=== PATIENT | male | born 1935 | race Caucasian/White ===

== ENCOUNTER 2025-02-03 22:13 | Inpatient (IN) | payer MEDICARE, BC, SELFPAY ==
[2025-02-03] VITALS (12 sets, daily range): BP systolic 126–158; BP diastolic 75–104; PULSE 115–116; BMI 21.7; BMI 21.1
[2025-02-03 18:05] LABS: Hematocrit 27.3 % (39.0-52.0); Hemoglobin 8.6 g/dL (13.0-18.0); Mean Corp Hgb Conc. 31.5 g/dL (33.0-37.0); Mean Corpuscular Volume 87.8 fL (80.0-94.0); Nucleated Red Blood Cells % 0 % (-); Platelet Count 226 10^3/uL (130-400); Red Cell Dist. Width 17.2 % (11.5-14.5)
[2025-02-03 18:15] LABS: ALT (SGPT) 77 U/L (0-50); AST (SGOT) 60 U/L (17-59); Albumin 4.7 g/dl (3.5-5.0); Alkaline Phosphatase 205 U/L (38-126); Blood Urea Nitrogen 35 mg/dl (9-20); Calcium 9.7 mg/dl (8.4-10.2); Carbon Dioxide 22 mmol/L (22-30); Chloride 106 mmol/L (98-107); Estimated Creatinine Clearance 42 ml/min; Glucose 236 mg/dl (70-99); Potassium 4.7 mmol/L (3.5-5.1); Sodium 140 mmol/L (135-145); Total Protein 7.7 g/dl (6.3-8.2); eGFR 57.81
[2025-02-03 18:16] LABS: INR 1.69; PT 20.4 Sec (11.4-14.6)
[2025-02-03 18:17] LABS: APTT 37.1 Sec (23.4-35.0)
[2025-02-03 19:06] LABS: Troponin I 0.368 ng/ml
--- NOTE | 2025-02-03 19:28 | ED.GENMED ---
History of Present Illness
General
Chief Complaint: Rectal Bleeding
Source: patient
Exam Limitations: none
Time Seen by Provider: 02/03/25 18:07
History of Present Illness
History of Present Illness:
Somewhat lack of history but apparently the physical therapist checked on him after missing his last session. Patient complaining of weakness some intermittent chest pressure some dark stools. Initially denied hitting his head after a fall 2 days
ago but then after pointing out the spot on his face he noted he may have hit his head. He lives alone but his son lives in the near facility. His major complaint is intermittent chest pain. Patient is on Xarelto. States he was at [facility]
Hospital in early December. Was admitted there with dark stools. His regular physician is from [facility]
Past History
Past History
ED Past Medical History: CAD
ED Past Surgical History: Bowel resection and Urological
Review of Systems
Review of Systems
All Other Systems: Not applicable
Constitutional: Denies fever
Respiratory: Reports no symptoms
ABD/GI: Reports no symptoms
Phy Exam
Physical Exam
Physical Exam:
GENERAL: Alert. Nontoxic-appearing
EYE: Orbits normal. Abrasion to the right face at the nasolabial fold
NECK: Supple, nontender
ENT: Pharynx without erythema
CARDIAC: Tachycardic and regular no murmur
LUNGS: Clear breath sounds,normal
ABDOMEN: Soft, without focal tenderness or distention. Stool is slightly dark brown but test negative
NEUROLOGICAL: Alert and oriented , grossly non-focal
SKIN: Warm and dry, no rash or lesion, no discoloration, skin intact.
MUSCULOSKELETAL: Mild edema. Good color
PSYCH: Normal and appropriate interaction.
Course
Orders/Labs/Results
Orders:
Orders
02/03/25 Breakfast
NPO
Allow oral meds: Yes
Allow clear liquids: Sips of Clears
02/03/25 17:48
EKG [Electrocardiogram (*1)] Urgent
Reason for Study: Tachycardia
EKG- Treatment ONCE
02/03/25 17:49
Type+Screen Urgent
Complete Blood Count/With Diff Urgent
Comprehensive Metabolic Panel Urgent
Glycohemoglobin (HgbA1c) Urgent
Iron Urgent
Comment: ADDED
PTT Urgent
Prothrombin Time Urgent
Total Iron Binding Urgent
Comment: ADDED
02/03/25 18:23
CT Head W/o Iv Contrast Urgent
Comment:
Reason For Exam: Recent fall facial injury anticoagulated
CR Chest - 2 Views Urgent
Comment:
Reason For Exam: Chest pain short of breath
02/03/25 18:26
Blood Culture Q30M
[place] Source: Blood/Venous
Specimen Description:
02/03/25 18:27
ABO2 Urgent
BBK Wristband Number:
Associate notified that ABO2 has been ordered: [id number]
Date: 02/03/25
Time: 18:01
[employer] D[employer] ID: [id number]
Troponin I Urgent
02/03/25 18:32
Blood Culture Q30M
[place] Source: Blood/Venous
Specimen Description:
02/03/25 20:04
CefTRIAXone [Rocephin] 1,000 mg IV NOW STA
02/03/25 20:08
Urinalysis Reflex To Culture Urgent
Date Specimen was Collected: 02/03/25
Time Specimen was Collected: 19:14
Urine Microscopic Reflex Cult Urgent
Urine Culture Urgent
[place] Source: U
Specimen Description:
Date Specimen was Collected: 02/03/25
Time Specimen was Collected: 19:14
02/03/25 20:29
Doxycycline Hyclate [Vibramycin] 100 mg 0.9% Sodium Chloride 250 ml [Nss] 250 ml IV NOW
02/03/25 20:42
Admit/Transfer Patient As Directed
Co-Sign Provider:
Level of Care: Inpatient admission
Assign to:: Telemetry
Physician / Group: Sabas
Diagnosis: Pneumonia, Anemia, Chest Pain
Reason for Telemetry: Chest Pain syndromes
Date to Stop Telemetry: 02/05/25
Time to Stop Telemetry: 11:00
Reason for Hospitalization: Pneumonia, Anemia, Chest Pain
Expected length of stay greater than two midnights?: Yes
ELOS- Estimated Length of Stay in days: 4
I certify the patient meets the requirements for IP care: Yes
PRN Pain Medication Management As Directed
May give lesser potent ordered pain med per pt: Yes
preference::
Protocol:: Medication orders for pain may be administered in a
manner that supports deferring to patient preference
when the pt is:
- Requesting an ordered lesser potent pain medication.
Least to most potent pain medications are defined
as: acetaminophen < NSAID < tramadol < opioids
(morphine, oxycodone, hydromorphone).
- Requesting a lesser dose of the same medication IF
ORDERED.
- Requesting a less intrusive route of administration
if both routes are prescribed by the provider (PO <
IV).
02/03/25 20:43
Code Status As Directed
Resuscitation Status: Do not resuscitate
Reached after discussion with pt or family/Healthcare POA: Yes
02/03/25 20:44
DNR Bracelet Application ONCE
02/03/25 22:14
Troponin I Q6H
Acetaminophen [Tylenol] 650 mg PO Q4HPRN PRN
Dextrose 50%-Water [Dextrose 50% Syringe] 12.5 grams IV [id number] PRN
Glucagon [GlucaGen] 1 mg IM PRN PRN
Metoprolol Xl [Toprol Xl] 25 mg PO BID
Nitroglycerin Sublingual [Nitrostat (Sublingual)] 0.4 mg SL [id number] PRN
Polyethylene Glycol Powder [Miralax] 17 grams PO DAILYPRN PRN
Prochlorperazine [Compazine] 5 mg IV Q6HPRN PRN
Sennosides [Senokot] 17.2 mg PO HS
02/03/25 22:14
Ferritin Routine
TSH Reflex To Free T4 Routine
Activity As Directed
Activity Level: Ambulate
With Assistance
Bedside Glucose Monitoring As Directed
Frequency: AC&HS
Additional Instructions:: Change to q6h if pt on TPN, tube feeding or not eating
Bladder Scan As Directed
Follow Bladder Retention/Intermittent Cath Algorithm?: Yes
PRN if no void in __ hours: 6
Frequency: Per Retention Algorithm
If Bladder Scan Result >: 400
then:: Straight cath
EKG with chest pain [ECG as needed] As Directed
ECG as needed for:: Chest Pain
I/O [Intake/ Output] As Directed
Frequency: Per unit guidelines
Orthostatic Vital Signs As Directed
Orthostatic VS Frequency: BID
Pneumatic Compression Sleeves As Directed
Type: Knee high
Straight Cath As Directed
Frequency: Per Retention Algorithm
Additional Instructions: straight cath as needed per acute urinary retention algorithm for 24 hrs
Additional Instructions: for bladder scan greater than 400 mL
Vital Signs As Directed
Frequency: Per unit guidelines
Weight As Directed
Frequency: Daily
Oxygen Therapy [O2 Therapy] [RESP] Routine
Titrate/Wean O2 to maintain O2 sat greater than (%): 94
PT Consult [Pt Eval And Treat] Routine
Activity Level: Ambulate
With Assistance
DX Deep Vein Thrombosis Video Routine
02/04/25 06:00
EKG [Electrocardiogram (*1)] IN AM
Reason for Study: Chest Pain
US Abdomen Complete/Upper IN AM
Comment:
Reason For Exam: Abnormal LFTs, Nausea
02/04/25 06:55
Basic Metabolic Panel IN AM
Cardiovascular Evaluation IN AM
Complete Blood Count/No Diff IN AM
Troponin I Q6H
02/04/25 07:30
Insulin Aspart Corrective Low [Novolog Flexpen-Low Resistance] See Protocol SC AC
02/04/25 08:00
Aspirin Chewable [Low Strength Aspirin] 81 mg PO DAILY
Docusate Sodium [Colace] 100 mg PO BID
Doxycycline [Vibramycin] 100 mg PO Q12
Pantoprazole [Protonix IV] 40 mg IV BID
02/04/25 12:32
Troponin I Q6H
02/04/25 20:00
CefTRIAXone [Rocephin] 1,000 mg IV Q24H
02/05/25 11:00
DC Protocol for Telemetry ONCE
Abnormal Lab Results
02/03/25 02/03/25 02/03/25
17:49 18:27 20:08
WBC 18.8 H 10^3/uL
(4.8-10.8)
RBC 3.11 L 10^6/uL
(4.70-6.10)
Hgb 8.6 L g/dL
(13.0-18.0)
Hct 27.3 L %
(39.0-52.0)
MCHC 31.5 L g/dL
(33.0-37.0)
RDW 17.2 H %
(11.5-14.5)
Abs Immat Gran (auto) 0.2 H 10^3/uL
(0-0.05)
Absolute Neuts (auto) 16.4 H 10^3/uL
(1.4-6.5)
Absolute Lymphs (auto) 0.7 L 10^3/uL
(1.2-3.4)
Absolute Monos (auto) 1.5 H 10^3/uL
(0.1-0.6)
Immature Gran % 0.8 H %
(0-0.5)
Neutrophils % 87.2 H %
(42.2-75.2)
Lymphocytes % 3.7 L %
(20.5-51.1)
PT 20.4 H Sec
(11.4-14.6)
APTT 37.1 H Sec
(23.4-35.0)
BUN 35 H mg/dl
(9-20)
Glucose 236 H mg/dl
(70-99)
Hemoglobin A1c 7.0 H %
(4.0-5.6)
Iron 33 L ug/dl
(49-181)
% Saturation 7 L %
(20-50)
AST 60 H U/L
(17-59)
ALT 77 H U/L
(0-50)
Alkaline Phosphatase 205 H U/L
(38-126)
Troponin I 0.368 H* ng/ml
Ur Occult Blood Reflex 2+ A
(Negative)
Urine RBC 7-10 A /HPF
(0-2)
Urine Bacteria (Reflex) Moderate A
(Negative)
Urine Albumin (Reflex) 2+ A
(Neg - Trace)
02/03/25 17:49
02/03/25 17:49
Vital Signs
Initial and Last Documented VS:
Initial Vital Signs
Pulse Resp BP
114 25 150/77
02/03/25 17:32 02/03/25 17:32 02/03/25 17:32
Last Documented Vital Signs
Temp Pulse Resp BP Pulse Ox
98.9 F 81 18 148/72 95
02/05/25 03:50 02/05/25 03:50 02/05/25 03:50 02/05/25 03:50 02/05/25 03:50
MDM/Problems Addressed
Differential Diagnosis Includes:
Difficult historian. Patient's major complaint seems to be some chest pressure at times. The history from the physical therapist was general weakness. His previous hospitalization has been at [facility]. We are trying to get the records.
Symptom complex would be most consistent with an upper GI bleed with the anemia elevated BUN dark stools. However the stool test negative. We are trying to figure out whether this anemia has been ongoing. He also has a leukocytosis that is
nonspecific. He has no infectious symptoms but this workup is also in progress. His troponin is near positive. He has a right bundle branch block. Clearly warrants admission for further workup of these issues.
*Radiology
Radiology exam reviewed: preliminary read by ED provider (Left perihilar infiltrate)
*Pulse Oximetry
SaO2: 97
Oxygen Mode of Delivery: Room air
Patient hypoxic: no
*EKG
Interpreted by ED Provider?: Yes
Interpretation: abnormal
Comparison EKG: no comparison EKG present
Heart Rate: 116
Rate: tachycardiac
Rhythm: sinus
[place]: normal axis
Interval: normal interval
QRS Pattern: right bundle branch block
Ischemia: non-specific ST changes
*Filter Press Supervisor Interpretation
Rate: tachycardiac
Interpretation: abnormal
Heart Rate: 114
Rhythm: sinus
*Critical Care Note
Total Time (30-74mins, 75-104mins- exclusive of procedures): 40
Update Note
Update Note:
Near positive troponin. EKG right bundle branch block. Patient's major complaint is this intermittent chest tightness. Last admitted to [facility] in early December. Trying to get these records. Anemic and tachycardic but stool test negative.
BUN is elevated.
ED Attending Note
-
Portions of this chart may have been created with voice recognition software.� Occasional wrong word or��sound alike� substitutions may have occurred due to the inherent limitations of voice recognition software.
Discharge Plan
Departure
Patient Disposition: Admit
Date of Disposition: 02/03/25
Time of Disposition: 19:28
Presentation/result/management discussed w/ accepting MD/DO: Hospitalist
Discharge Problem:
Weakness/non-STEMI MA, Anemia, leukocytosis/left perihilar pneumonia
Interventions
Interventions:
*Risk Screen - Suicide Last Done: 02/03/25 17:34
*General Assessment Last Done: 02/03/25 22:10
*Neglect/Abuse Screening Last Done: 02/03/25 17:34
*ED- Fall Risk Assessment Last Done: 02/03/25 17:34
*ED COVID-19 Vaccine History Last Done: 02/03/25 22:55
*Nursing Disposition Last Done: 02/03/25 22:10
ND-Dsuxrp-Ragyxztido Assessment Last Done: 02/03/25 18:22
ED- Cardiac Assessment Last Done: 02/03/25 19:06
ED- Pulmonary Assessment Last Done: 02/03/25 19:06
Discharge Date and Time
Discharge Date/Time: 02/03/25 22:19
[2025-02-03 20:12] LABS: Urine Character Clear (Clear)
[2025-02-03] MEDS: ROCEPHIN 1000 MG IV (20:14)
[2025-02-03 20:27] LABS: Urine White Cell 0-2 /HPF (0-5)
[2025-02-03] MEDS: VIBRAMYCIN 260 MG IV (20:30)
--- NOTE | 2025-02-03 20:39 | HPS.HSE ---
Family Physician
-
Family Physician: Floyd Bermeo, DO
Chief Complaint
-
Weakness
History of Present Illness
Patient is an 89y M with PMH significant for ASCVD, A-Fib and hypertension who presents to ED for evaluation of weakness. Apparently he failed to show up for a recent PT appointment and his therapist checked on his and found him to be very weak.
911 as called and he was brought to the ED for further evaluation. History is somewhat challenging to obtain. Patient complains of intermittent dizziness, nausea and chest discomfort. he states that these symptoms occur with activity / exertion
and are better at rest.
He denies any cough, fevers / chills, abdominal pain, diarrhea, etc. He does state that he has had dark / black stools for the past few days.
Patient states that he was hospitalized at [facility] about one month ago due to GI bleeding. Records obtained from [facility] show hospitalization for that complaint in September of this year.
He cannot say whether he was hospitalized at a different institution more recently.
Patient cannot state his current medications.
He appears comfortable at rest in the ED.
Medical History
Past Medical History
Past Medical History: Reports Other
Additional Past Medical History:
Hypertension
Paroxysmal Atrial Fibrillation
ASCVD
Colon Cancer
DM-II
GI Bleeding
Past Surgical History: Reports Other
Additional Past Surgical History:
Colon Resection / Colostomy
Colostomy Reversal
Rectal / Anastomotic Dilations (many)
CABG (twice)
Social History
Tobacco: Non-smoker
Alcohol: Occasional
Drug: None
Family History
Family History: Not pertinent
Allergies / Home Medications
Allergies reflects when Allergies were last updated in [facility].
Home Medications with original date entered in [facility]
Allergy/Medication List:
Unknown
Meds reviewed from September stay at [facility], but unable to reconcile current meds.
If medication reconciliation has not been performed, why?: Other (Unable to obtain.)
Review of Systems
-
History Source: Patient
A 12 point ROS was completed and negative except as noted: Yes
Constitutional: Reports Fatigue; Denies Fever or Chills
EENT: Denies Sore Throat or Runny Nose
Respiratory: Denies Cough or Trouble Breathing
Cardiac: Reports Chest Pain; Denies Diaphoresis, Palpitations or Syncope
Abdomen/GI: Reports Nausea and Black Stools; Denies Abdominal Pain, Vomiting, Diarrhea or Constipated
: Denies Dysuria or Frequency
Musculoskeletal: Reports Edema; Denies Joint Pain
Neurological: Reports Dizzy; Denies Headache
Psych: Denies Depression or Anxiety
Physical Exam
Vital Signs
Vital Signs
Temp Pulse Resp BP Pulse Ox
98.3 F 118 15 144/87 99
02/03/25 18:00 02/03/25 20:15 02/03/25 20:15 02/03/25 20:06 02/03/25 20:06
Physical Exam
General: Other (89y M mildly pale appearing. In no acute distress.)
HEENT: Moist mucous membranes, PERRLA and Other (Erythema / irritation in R nasolabial fold.)
Respiratory: Clear; No Wheezes, Rales or Rhonchi
Cardiac: S1/S2, Irregular Rhythm and Murmur (III/ JEMAL)
GI: Soft, Non Tender, Non Distended and Normal Bowel Sounds
Musculoskeletal: No Clubbing, No Cyanosis and Other (1-2+ edema b/l LEs.)
Neuro: AO x 3 and Nonfocal/grossly intact
Laboratory Results
-
02/03/25 17:49
02/03/25 17:49
Laboratory Results
PT 20.4 Sec (11.4-14.6) H 02/03/25 17:49
INR 1.69 02/03/25 17:49
APTT 37.1 Sec (23.4-35.0) H 02/03/25 17:49
Total Bilirubin 0.9 mg/dl (0.2-1.3) 02/03/25 17:49
AST 60 U/L (17-59) H 02/03/25 17:49
ALT 77 U/L (0-50) H 02/03/25 17:49
Alkaline Phosphatase 205 U/L (38-126) H 02/03/25 17:49
Troponin I 0.368 ng/ml H* 02/03/25 18:27
Impression/Plan
-
A/P: Patient is an 89y M with PMH significant for ASCVD, A-Fib and DM-II who presents to ED for evaluation of weakness and ? change in mental status.
Bibasilar Pneumonia
Sepsis secondary to the above
- Admit for further evaluation and treatment.
- Patient presents with tachycardia, leukocytosis and CXR showing R > L base opacities.
- Abx with ceftriaxone and doxycycline for now.
- Follow temperature curve. Monitor for any new / worsening symptoms.
- Follow for clinical improvement.
Chest Pain / Abnormal Troponin
ASCVD s/p Prior CABG
- Patient complains of exertional chest discomfort - pain free at rest / at present.
- EKG with RBBB and no prior tracings for comparison.
- Initial troponin is 0.368 - follow to peak.
- Hold on IV heparin or usual Xarelto for now given concerns for GI blood loss.
- Check Echo.
- Follow for recurrent chest pain, dyspnea, etc.
- Cardiology evaluation for additional recommendations.
- Patient states that he sees [facility] at [place], but cannot recall the name.
Normocytic Anemia - ? Acute on Chronic
History of GI Bleeding
- Hgb today is 8.9. Was 9-10 during September hospitalization at [facility].
- Seen by GI at that time for stercoral colitis / fecal impaction.
- Stool today in the ED is heme negative.
- Hold Xarelto acutely.
- Follow H&H and transfuse if needed - keep Hgb > 8 given chest pain / troponin / etc.
- IV PPI BID for now.
- Consider GI evaluation if any evidence of active bleeding.
- Check iron studies and replace if needed.
Abnormal LFTs
- Unclear etiology. Patient does complain of nausea.
- Check abdominal US for further evaluation.
Paroxysmal Atrial Fibrillation
- Stable. In sinus tachycardia at present.
- Toprol BID with holding parameters pending formal med reconciliation.
- Holding Xarelto acutely as noted above.
- Monitor on telemetry.
Benign Hypertension
- BP stable. Metoprolol as noted above.
- Restart other usual meds after formal med rec completed.
DM-II
- Follow glucose and cover with SSI for now.
- Update A1C.
- Med rec as noted to verify current medications.
DVT Prophylaxis: SCDs
Code Status: DNR
[2025-02-03 22:26] LABS: Glucose - Point of Care 187 mg/dl (70-99)
[2025-02-03] MEDS: SENOKOT 17.2 MG PO (22:52)
[2025-02-03] MEDS: TOPROL XL 25 MG PO (22:53)
[2025-02-04] VITALS (8 sets, daily range): BP systolic 116–155; BP diastolic 58–102; PULSE 66–117; O2SAT 96; BMI 21.1
[2025-02-04] MEDS: TYLENOL 650 MG PO ×2 (00:30→20:26)
[2025-02-04 00:31] LABS: Iron 33 ug/dl (49-181)
[2025-02-04 00:40] LABS: Total Iron Binding Capacity 427 ug/dl (261-462)
[2025-02-04 03:34] LABS: Troponin I 1.460 ng/ml
[2025-02-04 03:53] LABS: Ferritin 25.6 ng/ml (17.9-464.0)
[2025-02-04] MEDS: OCEAN, SALINE MIST 2 SPRAYS NASAL ×2 (04:21→20:27)
[2025-02-04 05:29] LABS: Glucose - Point of Care 130 mg/dl (70-99)
[2025-02-04 07:33] LABS: Hematocrit 25.8 % (39.0-52.0); Hemoglobin 7.8 g/dL (13.0-18.0); Mean Corp Hgb Conc. 30.2 g/dL (33.0-37.0); Mean Corpuscular Volume 89.0 fL (80.0-94.0); Platelet Count 195 10^3/uL (130-400); Red Cell Dist. Width 17.3 % (11.5-14.5)
--- NOTE | 2025-02-04 07:33 | W.PN.HOSP.TC ---
Addendum entered and electronically signed by Tiffany Aguirre MD 02/04/25 14:10:
I saw and evaluated the patient independently. I reviewed the resident�s note and agree with findings and plan as documented by Dr. Gordon.
GENERAL: well developed, well nourished, male in some distress--c/o abdominal pain and no BM x 7 days
HEENT: NC/AT
HEART: irreg irreg, JEMAL
LUNGS : clear to auscultation bilaterally
ABDOM: soft, nontender, distended, high pitched tinkling bowel sounds
EXT: no cyanosis, clubbing, or edema
NEUROLOGIC: grossly intact
abdominal discomfort-no BM x 7 days--exam concerning for obstruction--check STAT OBS series--no free air but distention of entire colon with large amount of ann marie and fecal impaction--GI consult
possible NSTEMI--tropinins elevated with some chest pain with exertion (takes SLG NTG)--apprec cards--medical management for now--ECHO pending--Initial troponin 0.368, increased to 1.460
Abnormal Chest X-ray showing left perihilar/medial lower lobe opacity--no symptoms c/w pna--cont rocephin and doxy for now
Scratch on Face--from fall--follow
Paroxysmal Atrial Fibrillation--cont metoprolol--hold xarelto for now
Acute on Chronic Anemia with a history of GI Bleed--Hemoglobin today: 7.8 On Repeat H&H, it hawa to: 8.3, possibly representing a dilution--Follow H&H and will transfuse with goal to keep hemoglobin >8--cont PPI--holding Xarelto
Essential Hypertension--BP within normal limits today--Continue metoprolol
Type II Diabetes Mellitus--A1c: 7.0 (02/03/2025)--Continue insulin therapy
DVT proph
code status --DNR
Original Note:
Today's Communication/Plan
-
Echo today
Assessment / Plan
Assessment / Plan
Assessment:
This is an 89 y/o male with pmhx of atrial fibrillation and essential hypertension who was brought to the ED via 911 after his physical therapist found him very weak found to have elevated troponins
Plan:
Abnormal Chest X-ray
-Patient with Chest X-ray showing left perihilar/medial lower lobe opacity, not currently complaining of shortness of breath. Tachycardia could be explained by abnormal troponin. Unclear if he has pneumonia at this time
-Continue ceftriaxone and doxycycline for now
-Will continue to assess for any any symptoms of pneumonia
Scratch on Face
-Unknown origin
-Will monitor for any changes
Right Bundle Branch Block
-Present on EKG from 02/03 and 02/04. No prior EKG seen.
-Patient follows with outpatient cardiology
-Will request records
Abnormal Troponin
-Extremely high suspicion for NSTEMI with abnormal symptoms (upper abdominal cramping vs chest pain)
-EKG on arrival showed inverted T waves in anterior leads and sinus tachycardia
-Initial troponin 0.368, increased to 1.460
-Continue to trend troponin
-Pending Echo
Paroxysmal Atrial Fibrillation
-Patient now in afib, not present upon arrival
-Continue metoprolol for rate control
-HOLD Xarelto due to anemia
Acute on Chronic Anemia with a history of GI Bleed
-Hemoglobin today: 7.8 On Repeat H&H, it hawa to: 8.3, possibly representing a dilution
-Stool in the ED was heme negative
-Follow H&H and will transfuse with goal to keep hemoglobin >8
-Continue IV PPI
-HOLD Xarelto
-Consider GI Consult if patient begins to display symptoms or signs of active bleed
Essential Hypertension
-BP within normal limits today
-Continue metoprolol
Type II Diabetes Mellitus
-A1c: 7.0 (02/03/2025)
-Continue insulin therapy
Constipation
-Continue bowel regimen including miralax, Senna and docusate
Anticipated Discharge: 24 - 48 hours
Subjective/Interval History
-
Date of Service: February 04, 2025
Patient was awake when I arrived. He states that he has been feeling very weak recently, and that this was why he came to the hospital. His main concern today however is abdominal cramping around/just underneath his ribs. He reports he cannot
remember the last time he had a bowel movement, though he notes taking MiraLax at home which 'does not work for him.' He denies any current chest pain or shortness of breath. He did state he does often have chest pain when he moves around, which
resolves quickly after taking nitroglycerin.
He reports that previously he drank 3 bottles of water a day, though he has been discouraged from doing this due to his heart. He states since that point he has had more swelling in his legs, though his legs are not more edematous today than they
have been recently.
He was unaware of the scratch-like lesion on his face, claiming he thought it was a white head and that it has been there for an unknown amount of time.
Objective Data
-
Labs:
Laboratory Results
02/04/25
06:55
WBC Pending
Hgb Pending
Hct Pending
Plt Count Pending
Sodium Pending
Potassium Pending
Chloride Pending
Carbon Dioxide Pending
BUN Pending
Creatinine Pending
Glucose Pending
Calcium Pending
Vital Signs:
Vital Signs
Temp Pulse Resp BP Pulse Ox
98.4 F 82 18 116/66 98
02/04/25 03:15 02/04/25 03:15 02/04/25 03:15 02/04/25 03:15 02/04/25 03:15
I&O
02/03/25 02/04/25 02/05/25
06:59 06:59 06:59
Intake Total 240 / 240
Output Total 200 / 200
Balance 40 / 40
Review of Systems
-
History Source: Patient
Constitutional: Reports Fatigue and Weakness; Denies Fever or Chills
Respiratory: Denies Cough, Trouble Breathing or Wheezing
Cardiac: Denies Chest Pain
Abdomen/GI: Reports Abdominal Pain (Cramping) and Constipated; Denies Nausea, Vomiting or Diarrhea
Musculoskeletal: Reports Edema
Skin: Reports Itching
Neuro: Reports Weakness; Denies Dizzy, Headache or Numbness
Physical Exam
-
General: Well Developed, Well Nourished, No Apparent Distress and Comfortable
HEENT: Normocephalic and Other (There is a linear area of inflammation along the left nasolabial fold with a thin, white line of pus-like material present, similar to a scratch)
Respiratory: Clear to Auscultation
Cardiac: S1/S2, Irregular Rhythm and Murmur (Systolic, III/)
GI: Nontender (With guarding) and Normal Bowel Sounds
Musculoskeletal: Edema, Right Lower Extrem (Trace) and Edema, Left Lower Extrem (Trace)
Skin: Warm and Dry
Neuro: Awake and Alert
Psych: Calm
[2025-02-04 07:55] LABS: Troponin I 2.440 ng/ml
[2025-02-04 07:57] LABS: Blood Urea Nitrogen 38 mg/dl (9-20); Calcium 9.6 mg/dl (8.4-10.2); Carbon Dioxide 26 mmol/L (22-30); Chloride 108 mmol/L (98-107); Estimated Creatinine Clearance 44 ml/min; Glucose 112 mg/dl (70-99); HDL Cholesterol 55 mg/dl; LDL Cholesterol, Calculated 70 mg/dl; Potassium 4.1 mmol/L (3.5-5.1); Sodium 139 mmol/L (135-145); Very Low Density Lipoprotein 14 mg/dl (0-30); eGFR > 60.00
--- NOTE | 2025-02-04 08:57 | CON.CAR ---
Addendum entered and electronically signed by Santo Ruiz MD 02/04/25 13:13:
I saw and examined the patient.
The ASSOCIATE TEACHER's note was reviewed and I agree with the note.
Primary admitted attorneys associated
89-year-old male with history of coronary artery disease previous coronary artery bypass grafting, atrial fibrillation, anticoagulation with Xarelto hypertension, hypercholesterolemia, diabetes, previous history of GI bleed who was brought in due to
reported weakness working with physical therapy. Patient denies having chest pain yesterday but does state that he periodically gets some chest discomfort which he takes nitroglycerin symptoms resolved about 20 minutes after taking nitro also
sometimes takes it because he is short of breath sounds like he takes a nitro at least once a week at times he is a bit vague in some of the details of his history. He states he has not been eating or drinking the last couple days also has not been
moving his bowels he reports having some vomiting yesterday. Chest x-ray suggestive of pneumonia. Patient is coughing up some green-yellow sputum in the mornings and demonstrated this for me during the visit.Anemia with hemoglobin 8.3 labs notable
for hemoglobin 8.3 troponin up to 2.4. Patient reports taking his medications. Although he lives alone he says his son lives close by. ECG A-fib with right bundle branch block
.
#Elevated troponin. Exact etiology unclear. May be multifactorial. Patient has known coronary disease and coronary artery bypass grafting additional contributing factors may include anemia, pneumonia and A-fib. Patient since rates. ECG sinus may
have been a little higher on presentation unclear if any of his medications were being missed at home. This may have also contributed. Currently chest pain-free.
-Continue with medical therapy for coronary artery disease
-Additional assessment of anemia. Get additional records or prior labs to see if anemia is close to his baseline. Monitoring for any signs of bleeding.
-Rate control A-fib continue
- Continue beta-viral and nitrates which she is on as an outpatient
-Considering that he is pain-free and the other ongoing issues with anemia, pneumonia and ongoing assessment for abdominal pain would continue with medical therapy for coronary artery disease rather than proceeding with cardiac catheterization
# Pneumonia. Continue treatment as directed by primary team
# Anemia. Hemoglobin 8.3 without clear evidence of acute bleeding. It may be acute on chronic. Obtain additional records. Additional assessment and treatment as directed by primary team
# A-fib continue with rate control and continue with anticoagulation provided that it is safe from an anemia standpoint
# Abdominal discomfort. Lower abdominal discomfort. Appears patient has not had a bowel movement in a number of days abdomen with mild distention. Symptoms may be related to constipation additional evaluation and treatment as directed by primary
team
Original Note:
Consultation
Consultation Request
Date/Time Consultation Requested: 02/03/252213
Date/Time Consultation Performed: 02/04/2520
Requesting Provider: Dr. Obregon
Performing Provider: Sofi CAMARA for Dr. Ruiz
Reason for Consultation: Abnormal troponin
Medical History
-
Chief Complaint: weakness
History of Present Illness:
89 y/o male (admitted attorneys Dr. Asif at [facility]) with hypertension, dyslipidemia, PAF on Xarelto, CAD with hx CABG (details unknown- he thinks 2009), DM2, GIB, and colon cancer with hx surgery who is here for weakness noted by PT who
comes to his house. He lives alone. Recent mechanical fall, details unclear, but denies syncope or hitting head. No SOB. He gets intermittent chest discomfort and takes nitro for this. He is seen to be anemic. He is also being treated for PNA with
abx. We are consulted for abnormal troponin.He is reporting lower abdominal pain as his main issues presently, and reports he has not been eating or drinking much. I do not believe that he is a fully reliable historian about his recent history.
Past Medical History
Past Medical History: Arrhythmias, CAD, Cancer, HTN, Hypercholesterolemia, NIDDM and Other (as above)
Social History
Tobacco: Non-Smoker
Family History
Family History: Reviewed & Not Pertinent
Allergies / Home Medications
Allergy/AdvReac Type Severity Reaction Status Date / Time
No Known Allergies Allergy Unverified 02/03/25 17:47
�Medication �Instructions �Recorded �Confirmed �Type
Fish Oil 1 cap PO DAILY 02/03/25 02/03/25 History
atorvastatin 10 mg tablet 10 mg PO QPM 02/03/25 02/03/25 History
atorvastatin 20 mg tablet 20 mg PO QPM 02/03/25 02/03/25 History
clotrimazole-betamethasone 1 1 applic topical HS apply to back 02/03/25 02/03/25 History
%-0.05 % topical cream itch
cyanocobalamin (vitamin B-12) 1,000 mcg SC QMONTH 02/03/25 02/03/25 History
1,000 mcg/mL injection solution
docusate sodium 100 mg capsule 100 mg PO DAILYPRN PRN constipation 02/03/25 02/03/25 History
(Colace)
glimepiride 2 mg tablet 2 mg PO NOON 02/03/25 02/03/25 History
hydrocortisone 2.5 % topical cream 1 applic MT HS 02/03/25 02/03/25 History
with perineal applicator
isosorbide mononitrate 30 mg 30 mg PO DAILY 02/03/25 02/03/25 History
tablet,extended release 24 hr
lisinopril 10 mg tablet 10 mg PO NOON 02/03/25 02/03/25 History
lorazepam 1 mg tablet 1 mg PO BID 02/03/25 02/03/25 History
metformin 750 mg tablet,extended 750 mg PO NOON 02/03/25 02/03/25 History
release 24 hr
metoprolol succinate 25 mg 25 mg PO DAILY 02/03/25 02/03/25 History
tablet,extended release 24 hr
(Toprol XL)
nitroglycerin 0.4 mg sublingual 0.4 mg sublingual [id number] PRN 02/03/25 02/03/25 History
tablet chest pain
pantoprazole 40 mg tablet,delayed 40 mg PO DAILY 02/03/25 02/03/25 History
release
polyethylene glycol 3350 17 gram 17 g PO DAILYPRN PRN constipation 02/03/25 02/03/25 History
oral powder packet (Miralax)
rivaroxaban 15 mg tablet (Xarelto) 15 mg PO QPM 02/03/25 02/03/25 History
Review of Systems
-
History Source: Patient and Other (and chart)
All other systems: Negative unless noted
Cardiac: Chest Pain
Abdomen/GI: Abdominal Pain
Neurological: Weakness
Physical Exam
Vital Signs
Temp Pulse Resp BP Pulse Ox
98.6 F 79 18 126/65 99
02/04/25 08:00 02/04/25 08:00 02/04/25 08:00 02/04/25 08:00 02/04/25 08:00
Lab Results
02/04/25 06:55
02/04/25 06:55
Troponin I 2.440 ng/ml H* D 02/04/25 06:55
Physical Exam
General: Well Developed, Well Nourished and No Apparent Distress
HEENT: Normocephalic and Anicteric
Respiratory: Other (diminished L base)
Cardiac: Irregular Rhythm and Murmur (II/ systolic)
Skin: Warm and Dry
Neuro: AO x 3
Psych: Calm
Impression / Plan
-
PNA:
-on IV abx
Anemia: severe
-hgb currently 7.8 (decreased from yesterday), and new one pending. Consider transfusion in this patient with CAD.
-also with abdominal pain, but reported heme negative stool. On PPI. W/u and management per primary team.
Abnormal troponin:
-etiology not totally clear to me at this time, but possibly type II TN in this patient with known significant CAD history and significant anemia- see above
-trend to peak, obtain echo
CAD with hx CABG:
-denies any history of stenting
-on Xarelto, BB, statin as OP
-gets CP intermittently and takes PRN nitro, on Imdur
-records from admitted attorneys requested
AFIB: paroxysmal per chart
-currently in rate-controlled AFIB- continue metoprolol
-on Xarelto as OP, held for anemia
HTN: stable
-continue meds and monitor
HLD: statin
Data Reviewed
-
EKG: Tracing Personally Visualized and interpreted (ST with RBBB)
Radiology: Report Reviewed by me (CXR: here is a left perihilar/medial lower lobe opacity which likely represents pneumonia.)
Medical Tests (Nuc Med, Echo etc): Other (echo ordered)
Labs: Labs Reviewed by me
[2025-02-04] MEDS: NOVOLOG FLEXPEN-LOW RESISTANCE SC ×3 (09:34→18:58)
[2025-02-04] MEDS: VIBRAMYCIN 100 MG PO ×2 (09:35→20:26)
[2025-02-04] MEDS: COLACE 100 MG PO ×2 (09:36→20:26)
[2025-02-04] MEDS: NSS (PRESERVATIVE FREE) 10 ML IV ×2 (09:36→20:13)
[2025-02-04] MEDS: TOPROL XL 25 MG PO ×2 (09:36→20:26)
[2025-02-04] MEDS: PROTONIX IV 40 MG IV ×2 (09:37→20:13)
[2025-02-04 10:04] LABS: Glycohemoglobin (HgbA1c) 7.0 % (4.0-5.6)
[2025-02-04 10:10] LABS: Hematocrit 26.3 % (39.0-52.0); Hemoglobin 8.3 g/dL (13.0-18.0)
[2025-02-04 12:39] LABS: Glucose - Point of Care 149 mg/dl (70-99)
[2025-02-04 13:15] LABS: Troponin I 2.260 ng/ml
--- NOTE | 2025-02-04 14:09 | CON.GI ---
Addendum entered and electronically signed by Zion Solis MD 02/04/25 16:09:
I saw and examined the patient.
The JEWEL CORNER BRUSHING MACHINE OPERATOR or PA's note was reviewed and I agree with the note.
Comment: 89yo male admitted with weakness, PNA, elevated troponin. Abd distended so AXR checked showing colonic distention, large amount of stool, likely fecal impaction. He has hx CRC dx'd at age 42 treated with resection, temporary colostomy
that was reversed. He had dilations for anastomotic stricture following that but has not had colonoscopy for last 10 years. He reports recently being admitted to [facility] and [facility] where they attempted to clear stool with enemas. On rectal
exam here, no significant stool in the rectal vault, brown heme negative. Hgb low at 8.3.
REC:
Give Milk and molasses enemas to try to mobilize stool
Check repeat Abd xray
Get records from [facility]
Consider BE or gastrograffin enema to clarify if he has anastomotic stricture amenable to dilation. He may not wish aggressive work up.
Check repeat Hgb. Heme negative.
Original Note:
Consultation
-
Date/Time Consultation Requested: 02/04/25 1400
Date/Time Consultation Performed: 02/04/25 1410
Requesting Provider: Tiffany Aguirre MD
Performing Provider: HOA Campos, Zion Solis MD
Reason for Consultation: fecal impaction
Medical History
Chief Complaint / HPI
Chief Complaint: abdominal pain
History of Present Illness:
Pt is a 89yo with hx afib on Xarelto, colon cancer at age 42 with ostomy resection and reversal with post -op need for serial dilation, prior GI bleed, NIDDM presents to ER with weakness with noted elevated troponin and CXR with possible PNA with
cardiology evaluation. Pt report no stools for 1 week. Obstruction series completed with distention of colon with large amount of stool with rectal distention with concern for impaction and consider decompression rectum and reassess. Pt
also noted with elevated LFT's with bili 0.9, AST 60, alk 77 alk phos 205. US completed with
No evidence of cholelithiasis, gallbladder wall thickening or biliary tract dilatation. Left lobe of liver, pancreas and abdominal aorta significantly obscured, most likely by overlying bowel gas. In review with patient and son, patient has had
recent admission to [facility] within last month with similar symptom and fecal impaction. He had multiple enemas but did not completely clear.
At this time patient admits to to nauseas with ? vomiting. He also has had about 9 lbs wt loss and no stools for 1 week with abdominal pain and bloating. He also admits to recent black stools prior to that admission. He is unsure of prior last
full colonoscopy may have been around age 80. He had chronic GERD PPI. He denies dysphagia, diarrhea,
Past Medical History
Past Medical History: Arrhythmias (PAF), Cancer (colon CA), NIDDM (GI bleed) and Other (ASCVD)
Past Surgical History: Cardiac (CABG)
Social History
Tobacco: Non-Smoker
Alcohol: None
Drug: None
Personal:
Living: Alone
Employment: Retired
Family History
Family History: Other (mother with tongue )
Allergies / Home Medications
Allergy/AdvReac Type Severity Reaction Status Date / Time
No Known Allergies Allergy Unverified 02/03/25 17:47
�Medication �Instructions �Recorded
Fish Oil 1 cap PO DAILY 02/03/25
atorvastatin 10 mg tablet 10 mg PO QPM 02/03/25
atorvastatin 20 mg tablet 20 mg PO QPM 02/03/25
clotrimazole-betamethasone 1 1 applic topical HS apply to back 02/03/25
%-0.05 % topical cream itch
cyanocobalamin (vitamin B-12) 1,000 mcg SC QMONTH 02/03/25
1,000 mcg/mL injection solution
docusate sodium 100 mg capsule 100 mg PO DAILYPRN PRN constipation 02/03/25
(Colace)
glimepiride 2 mg tablet 2 mg PO NOON 02/03/25
hydrocortisone 2.5 % topical cream 1 applic SD HS 02/03/25
with perineal applicator
isosorbide mononitrate 30 mg 30 mg PO DAILY 02/03/25
tablet,extended release 24 hr
lisinopril 10 mg tablet 10 mg PO NOON 02/03/25
lorazepam 1 mg tablet 1 mg PO BID 02/03/25
metformin 750 mg tablet,extended 750 mg PO NOON 02/03/25
release 24 hr
metoprolol succinate 25 mg 25 mg PO DAILY 02/03/25
tablet,extended release 24 hr
(Toprol XL)
nitroglycerin 0.4 mg sublingual 0.4 mg sublingual [id number] PRN 02/03/25
tablet chest pain
pantoprazole 40 mg tablet,delayed 40 mg PO DAILY 02/03/25
release
polyethylene glycol 3350 17 gram 17 g PO DAILYPRN PRN constipation 02/03/25
oral powder packet (Miralax)
rivaroxaban 15 mg tablet (Xarelto) 15 mg PO QPM 02/03/25
Review of Systems
-
History Source: Patient and Family
Constitutional: Reports Weight Loss and Fatigue
EENT: Reports No Symptoms
Respiratory: Reports No Symptoms
Cardiac: Reports No Symptoms
Abdomen/GI: Reports Abdominal Pain, Nausea, Vomiting, Constipated and Black Stools
: Reports No Symptoms
Musculoskeletal: Reports No Symptoms
Neurological: Reports Weakness
Endocrine: Reports No Symptoms
Hematologic/Lymphatic: Reports Bleeding
Vital Signs
Temp Pulse Resp BP Pulse Ox
98.9 F 107 18 143/97 99
02/04/25 11:30 02/04/25 11:30 02/04/25 11:30 02/04/25 11:30 02/04/25 11:30
Physical Exam
Exam
General: Well Developed, Well Nourished and No Apparent Distress
HEENT: Normocephalic and Anicteric
Respiratory: Clear
Cardiac: Other (tachy)
GI: Soft, Tender and Distended
Rectal: Other (per Dr. Solis minimal brown heme neg stool in rectal vault-- impaction higher up )
Musculoskeletal: No Clubbing and No Cyanosis
Skin: Warm and Dry
Neuro: Awake, Alert and Other (forgetful- baseline per son)
Psych: Calm
Results
WBC 13.2 10^3/uL (4.8-10.8) H 02/04/25 06:55
Hgb 8.3 g/dL (13.0-18.0) L 02/04/25 09:52
Hct 26.3 % (39.0-52.0) L 02/04/25 09:52
MCV 89.0 fL (80.0-94.0) 02/04/25 06:55
Plt Count 195 10^3/uL (130-400) 02/04/25 06:55
Absolute Neuts (auto) 16.4 10^3/uL (1.4-6.5) H 02/03/25 17:49
PT 20.4 Sec (11.4-14.6) H 02/03/25 17:49
INR 1.69 02/03/25 17:49
APTT 37.1 Sec (23.4-35.0) H 02/03/25 17:49
Sodium 139 mmol/L (135-145) 02/04/25 06:55
Potassium 4.1 mmol/L (3.5-5.1) 02/04/25 06:55
Chloride 108 mmol/L (98-107) H 02/04/25 06:55
Carbon Dioxide 26 mmol/L (22-30) 02/04/25 06:55
BUN 38 mg/dl (9-20) H 02/04/25 06:55
Creatinine 1.1 mg/dL (0.7-1.3) 02/04/25 06:55
Calcium 9.6 mg/dl (8.4-10.2) 02/04/25 06:55
Total Bilirubin 0.9 mg/dl (0.2-1.3) 02/03/25 17:49
AST 60 U/L (17-59) H 02/03/25 17:49
ALT 77 U/L (0-50) H 02/03/25 17:49
Alkaline Phosphatase 205 U/L (38-126) H 02/03/25 17:49
Diagnostic Image Results:
02/04/25 CR Obstruct Series W/pa Chest
Distention of the entire colon, which contains a large amount stool. The rectum is also distended with stool. Findings likely represent fecal impaction. Consider decompressing the rectum and performing repeat radiographs to reassess the caliber of
the colon
No acute radiographic abnormality in the chest
02/04/25 US abdomen
IMPRESSION: No evidence of cholelithiasis, gallbladder wall thickening or biliary tract dilatation.
Left lobe of liver, pancreas and abdominal aorta significantly obscured, most likely by overlying bowel gas.
Prior GI Procedures:
Colonoscopy: last full 10 years ago recent attempt unsuccessful per patient at [place]
Assessment / Plan
-
Pt is a 89yo with hx afib on Xarelto, colon cancer at age 42 with ostomy resection and reversal with post -op need for serial dilation, prior GI bleed, NIDDM presents to ER with weakness with noted elevated troponin and CXR with possible PNA with
cardiology evaluation. Pt report no stools for 1 week. Obstruction series completed with distention of colon with large amount of stool with rectal distention with concern for impaction and consider decompression rectum and reassess. Pt
also noted with elevated LFT's with bili 0.9, AST 60, alk 77 alk phos 205. US completed with
No evidence of cholelithiasis, gallbladder wall thickening or biliary tract dilatation. Left lobe of liver, pancreas and abdominal aorta significantly obscured, most likely by overlying bowel gas. In review with patient and son, patient has had
recent admission to [place] and [facility] within last month with similar symptom and fecal impaction. He had multiple enemas but did not completely clear.
-fecal impaction with large rectal stool burden and distention of colon
-recent admission to [place] and [facility] in last month with similar impaction
-hx colon ca age 42 with resection/temp ostomy/reversal and need to dilations post surgeru
-recent melena
-increased LFT's
-anemia with iron deficiency
-CXR with concern for PNA
-elevated troponin
-wt loss
other med problems:
-afib on Xarelto
-NIDDM
-ASCVD with prior CABG
PLAN:
etiology of symptoms with concern for large fecal impaction with colonic distention -- recurrent over last month with now 3rd admission
s/p attempted disimpaction with Dr. Solis with stool higher up
bladder scan around 200ml per nursing staff
will start enema x 2 overnight -- make take several to clear vs need to disimpaction under sedation
unclear if underlying stricture or mass with continued constipation
bowel regiment with colace BID, senna 2 tabs at HS
Xarelto hold in case further disimpaction needed
NPO ok for sip liquids
IVF
trend hbg transfuse <7-- pt reports recent anemia and declined transfusion
cont abx
cont PPI
requested records from [facility]
cont work up for other issue with elevated trop, pNA per medical team
updated son dangelo- [phone] --per son pt with wishes of conservative measures and has been declining ER eval with weakness and ongoing issues
-
-
Thank you for consultation and allowing me to participate in the patient's care. Please call the distribution systems serviceperson GI physician during the after hours with any questions or concerns.
--- NOTE | 2025-02-04 14:51 | CM ---
Patient seen at bedside with physician on [address]. Patient stated that he lives alone and that his son lives [address] Per patient his son eats a meal with him one time daily and then he eats a meal from '[employer] wheels' but
usually he does not eat anything after supper except ice cream. Patient has no VN supports at this time. Patient plan is to return home to his 2 story home. Patient son phone contact is not available in the chart. CM will try to reach out to the
family. Patient stated that he has a overhead cleaner for the home and that he has had a problem with the stove so he does not like to use it. Patient uses the [facility] on [address] [place] [address] and his PCP is Dr. Bermeo. Patient stated that his son
told him that his doctor stated that ' there was nothing more that he could do for him'. Patient stated that he had not heard that from the physician directly. Patient has medicare insurance. CM will continue to follow for discharge planning needs.
Plan; home with VN vs SNF
[2025-02-04] MEDS: IMDUR (EXTENDED RELEASE) 30 MG PO (15:44)
[2025-02-04] MEDS: LOW STRENGTH ASPIRIN PO (15:51)
--- NOTE | 2025-02-04 17:00 | PTCARENOTE ---
Milk of Molasses administered with positive effect. Patient had 1 large bowel movement.
[2025-02-04] MEDS: LOPRESSOR 5 MG IV (18:00)
[2025-02-04 18:46] LABS: Glucose - Point of Care 154 mg/dl (70-99)
[2025-02-04] MEDS: ROCEPHIN 1000 MG IV (20:13)
[2025-02-04] MEDS: STERILE WATER FOR INJECTION 10 ML IV (20:13)
[2025-02-04] MEDS: SENOKOT 17.2 MG PO (20:26)
[2025-02-04 21:32] LABS: Glucose - Point of Care 149 mg/dl (70-99)
[2025-02-05] VITALS (8 sets, daily range): BP systolic 109–160; BP diastolic 53–86; PULSE 82–107; O2SAT 98–100; BMI 21.4
--- NOTE | 2025-02-05 01:00 | PTCARENOTE ---
Milk of Molasses enema given. Pt tolerated. Now having loose BM's.
[2025-02-05 05:40] LABS: Hematocrit 23.4 % (39.0-52.0); Hemoglobin 7.4 g/dL (13.0-18.0); Mean Corp Hgb Conc. 31.6 g/dL (33.0-37.0); Mean Corpuscular Volume 86.7 fL (80.0-94.0); Platelet Count 192 10^3/uL (130-400); Red Cell Dist. Width 17.4 % (11.5-14.5)
[2025-02-05] MEDS: TYLENOL 650 MG PO (05:41)
[2025-02-05] MEDS: COMPAZINE 5 MG IV (05:44)
[2025-02-05 06:04] LABS: Blood Urea Nitrogen 34 mg/dl (9-20); Calcium 9.3 mg/dl (8.4-10.2); Carbon Dioxide 24 mmol/L (22-30); Chloride 110 mmol/L (98-107); Estimated Creatinine Clearance 45 ml/min; Glucose 119 mg/dl (70-99); Magnesium 1.9 mg/dl (1.6-2.3); Potassium 4.0 mmol/L (3.5-5.1); Sodium 141 mmol/L (135-145); eGFR > 60.00
--- NOTE | 2025-02-05 07:30 | W.PN.HOSP.TC ---
Addendum entered and electronically signed by Tiffany Aguirre MD 02/05/25 17:19:
I saw and evaluated the patient independently. I reviewed the resident�s note and agree with findings and plan as documented by Dr. Gordon.
GENERAL: well developed, well nourished, male in some distress--c/o abdominal pain and no BM x 7 days
HEENT: NC/AT
HEART: irreg irreg, JEMAL
LUNGS : clear to auscultation bilaterally
ABDOM: soft, nontender, distended, high pitched tinkling bowel sounds
EXT: no cyanosis, clubbing, or edema
NEUROLOGIC: grossly intact
abdominal discomfort--due to dilated colon with fecal impaction--apprec GI -exam concerning for obstruction---apprec GI consult--enemas given with good results
Type 2 NSTEMI--tropinins elevated with some chest pain with exertion (takes SLG NTG)--apprec cards--medical management for now--ECHO with EF 55%--Initial troponin 0.368, peaked at 2.4 with decrease to 1.0
Abnormal Chest X-ray showing left perihilar/medial lower lobe opacity--no symptoms c/w pna--cont rocephin and doxy for now
Scratch on Face--from fall--follow
Paroxysmal Atrial Fibrillation--cont metoprolol--hold xarelto for now
Acute on Chronic Anemia with a history of GI Bleed--Hemoglobin today: 7.8 On Repeat H&H, it hawa to: 8.3, possibly representing a dilution--Follow H&H and will transfuse with goal to keep hemoglobin >8--cont PPI--holding Xarelto
Essential Hypertension--BP within normal limits today--Continue metoprolol
Type II Diabetes Mellitus--A1c: 7.0 (02/03/2025)--Continue insulin therapy
DVT proph
code status --DNR
pt initially agreed to detention facility but now adamantly refuses--plan will likely be home with VN
Original Note:
Today's Communication/Plan
-
Continue bowel regimen for constipation
Likely discharge tomorrow
Assessment / Plan
Assessment / Plan
Assessment:
This is an 89 y/o male with pmhx of atrial fibrillation and essential hypertension who was brought to the ED via 911 after his physical therapist found him very weak found to have elevated troponin and fecal impaction
Plan:
Constipation with Resolved Fecal Impaction
-Fecal Impaction noted on Abdominal X-ray yesterday
-Patient status post enema x2 yesterday/overnight
-Repeat Abdominal X-ray today showed fecal matter still present within the right colon, but no signs of impaction
-GI is following, will appreciate their insight into his case
-Will continue to monitor for symptoms
-Continue Bowel regimen, which will need to be continued in outpatient setting as patient has had other hospitalizations for fecal impaction
Abnormal Chest X-ray
-Patient with Chest X-ray showing left perihilar/medial lower lobe opacity, not currently complaining of shortness of breath. Tachycardia could be explained by abnormal troponin. Unclear if he has pneumonia at this time
-Continue ceftriaxone and doxycycline for now
-Will continue to assess for any any symptoms of pneumonia
Scratch on Face
-Unknown origin, possibly from fall
-Will monitor for any changes
Right Bundle Branch Block
-Present on EKG from 02/03 and 02/04. No prior EKG seen.
-Patient follows with outpatient cardiology
Abnormal Troponin
-Extremely high suspicion for NSTEMI with abnormal symptoms (upper abdominal cramping vs chest pain)
-EKG on arrival showed inverted T waves in anterior leads and sinus tachycardia
-Initial troponin 0.368, peaked at 2.440 on 02/04/2025, now downtrending at 1.040
-Continue to trend troponin
-Echo from 02/04/2025 showed normal EF.
Paroxysmal Atrial Fibrillation
-Patient now in afib, not present upon arrival
-Continue metoprolol for rate control
-HOLD Xarelto due to anemia
Acute on Chronic Anemia with a history of GI Bleed
-Hemoglobin today: 7.4 On Repeat H&H, it hawa to: 8.1, possibly representing a dilution. No indication for transfusion at this time.
-Stool in the ED was heme negative
-Follow H&H and will transfuse with goal to keep hemoglobin >8
-Continue IV PPI
-HOLD Xarelto
Essential Hypertension
-BP within normal limits
-Continue metoprolol
Type II Diabetes Mellitus
-A1c: 7.0 (02/03/2025)
-Continue insulin therapy
Constipation
-Continue bowel regimen including miralax, Senna and docusate
Anticipated Discharge: 24 - 48 hours
Subjective/Interval History
-
Date of Service: February 05, 2025
Patient was doing well when I arrived today. He states when he woke up this morning he had some abdominal cramping and gas which resolved. He also had some nausea overnight which he reports resolved is also gone. He has no concerns today aside from
a mild sore throat which he attributes to his mouth being dry.
Objective Data
-
Labs:
Laboratory Results
02/05/25
05:27
WBC 12.7 H
Hgb 7.4 L
Hct 23.4 L
Plt Count 192
Sodium 141
Potassium 4.0
Chloride 110 H
Carbon Dioxide 24
BUN 34 H
Creatinine 1.1
Glucose 119 H
Calcium 9.3
Vital Signs:
Vital Signs
Temp Pulse Resp BP Pulse Ox
98.9 F 81 18 148/72 95
02/05/25 03:50 02/05/25 03:50 02/05/25 03:50 02/05/25 03:50 02/05/25 03:50
I&O
02/04/25 02/05/2525
06:59 06:59 06:59
Intake Total 240 / 240 720 / 720
Output Total 200 / 200 950 / 950
Balance 40 / 40 -230 / -230
Review of Systems
-
History Source: Patient
EENT: Reports Sore Throat
Respiratory: Denies Trouble Breathing
Cardiac: Denies Chest Pain
Abdomen/GI: Reports Abdominal Pain (See HPI); Denies Nausea or Vomiting
Neuro: Denies Headache or Weakness
Physical Exam
-
General: Well Developed, Well Nourished, No Apparent Distress and Comfortable
HEENT: Normocephalic and Atraumatic
Respiratory: Clear to Auscultation
Cardiac: S1/S2, Irregular Rhythm and Murmur
GI: Soft, Nontender and Normal Bowel Sounds
Skin: Warm and Dry
Neuro: Awake and Alert
Psych: Calm
[2025-02-05 08:13] LABS: Glucose - Point of Care 140 mg/dl (70-99)
--- NOTE | 2025-02-05 09:18 | W.PN.CD ---
Today's Communication / Plan
-
Cont meds
Consider transfusion for Hgb of 7.4
HR and BP are controlled
Impression / Plan
-
PNA:
-on IV abx
Anemia: severe
-hgb currently 7.4 (decreased from yesterday), and new one pending. Consider transfusion in this patient with CAD.
-also with abdominal pain, but reported heme negative stool. On PPI. W/u and management per primary team.
Abnormal troponin:
-This is likely type 2 NSTEMI given PNA and significant anemia
- he has known severe CAD with CABG history
- He has no symptoms to suggest ischemia, ie CP free
- He should have outpt stress test
- Echo showed normal EF as below
CAD with hx CABG:
-denies any history of stenting
-on Xarelto, BB, statin as OP
-gets CP intermittently and takes PRN nitro, on Imdur
-records from [facility] requested
AFIB: paroxysmal per chart
-currently in rate-controlled AFIB- continue metoprolol
-on Xarelto as OP, held for anemia
HTN: stable
-continue meds and monitor
HLD: statin
Echo: February 04 CONCLUSIONS
Normal left ventricular systolic function.
Left ventricular ejection fraction is 55%.
Thickened mitral leaflets, mitral annular calcification. Moderate mitral
regurgitation
Thickened aortic valve with restricted leaflet motion. Appearance suggest a
degree aortic stenosis although no significant transaortic gradient was
captured. Please see description below
Moderate tricuspid regurgitation
No prior study available for comparison
Physical Exam
Vital Signs/Labs
Vital Signs
Temp Pulse Resp BP Pulse Ox
98.8 F 85 18 117/58 95
02/05/25 07:35 02/05/25 07:35 02/05/25 07:35 02/05/25 07:35 02/05/25 07:35
02/04/25 02/05/25 02/06/25
06:59 06:59 06:59
Actual Weight 151 lb 8 oz 153 lb 4 oz
02/05/25 05:27
02/05/25 05:27
PT 20.4 Sec (11.4-14.6) H 02/03/25 17:49
INR 1.69 02/03/25 17:49
APTT 37.1 Sec (23.4-35.0) H 02/03/25 17:49
Magnesium 1.9 mg/dl (1.6-2.3) 02/05/25 05:27
Triglycerides 73 mg/dl (10-149) 02/04/25 06:55
LDL Cholesterol, Calc 70 mg/dl 02/04/25 06:55
VLDL Cholesterol, Calc 14 mg/dl (0-30) 02/04/25 06:55
HDL Cholesterol 55 mg/dl 02/04/25 06:55
LAB Results
02/03/25 02/04/25 02/04/25
18:27 02:43 06:55
Troponin I 0.368 H* 1.460 H* 2.440 H* D
02/04/25
12:32
Troponin I 2.260 H*
Physical Exam
Constitutional: No acute distress
EENT: Anicteric
Cardiovascular: Rhythm/rate is irregular
Respiratory: Respiratory effort normal
GI: Soft
Neuro/Psych: Alert and Oriented
Data Reviewed
-
Date of Service: February 05, 2025
EKG: Tracing Personally Visualized and interpreted (af)
Echo: Report Reviewed by me
Labs: Labs Reviewed by me
[2025-02-05] MEDS: NOVOLOG FLEXPEN-LOW RESISTANCE SC (09:21)
[2025-02-05] MEDS: VIBRAMYCIN 100 MG PO ×2 (09:22→20:50)
[2025-02-05] MEDS: IMDUR (EXTENDED RELEASE) 30 MG PO (09:22)
[2025-02-05] MEDS: COLACE 100 MG PO ×2 (09:25→20:49)
[2025-02-05] MEDS: MYLICON 80 MG PO (09:25)
[2025-02-05] MEDS: TOPROL XL 25 MG PO ×2 (09:25→20:50)
--- NOTE | 2025-02-05 09:25 | W.PN.GI.CBS2 ---
Addendum entered and electronically signed by Lindsay Starks Do, MD 02/05/25 13:07:
I saw and examined the patient.
The BEHAVIORAL THERAPY COORDINATOR's note was reviewed and I agree with the note.
Comment: Passed several BMs. Feels improved today. Wants diet advanced. VSS, exam soft abd NTTP.
Recommendation
- Advise him to resume miralax BID outpatient basis to prevent recurrence
- He reports flex sigm done at [facility] 4wks ago. Records requested
- No plans for repeat on this admission
- For his chronic iron def anemia would benefit from OP EGD/colon. He can FU with Dr Solis outpatient basis
- Adv to low residue diet
- He is agreeable to placement for rehab
At this juncture no new GI recs will sign off please call for ?
Hospitalist and resident updated.
Original Note:
Today's Communication / Plan
-
etiology of symptoms with concern for large fecal impaction with colonic distention -- recurrent over last month with now 3rd admission
s/p attempted disimpaction with Dr. Solis with stool higher up
s/p enema x 2 overnight with passage of multiple stool and feeling better
abd X ray pending
hbg with some further drop to 7.4 with iron deficiency
will add IV iron
will review imaging with Dr. Cassidy-- reviewed concern with patient with 3 admission for fecal impaction and anemia -- with hx colon CA ? recurrence vs stricture- he is unsure if would want colonoscopy but also reviewed for flex sig
he will consider options and review further with Dr. Cassidy if able today today vs Saturday with multiple other medical issues
bowel regiment with colace BID, senna 2 tabs at HS-- will need to increase pending plan for scope
pt on Xarelto but no doses since admission 02/03
NPO ok for sip liquids
IVF
cont abx with concen for PNA
cont PPI
requested records from [place] and [facility]
cont work up for other issue with elevated trop, pNA per medical team
updated son dangelo- [phone] 02/04
-per review with son pt has been declining several intervention and recent ER evaluations
Assessment / Plan
-
Pt is a 89yo with hx afib on Xarelto, colon cancer at age 42 with ostomy resection and reversal with post -op need for serial dilation, prior GI bleed, NIDDM presents to ER with weakness with noted elevated troponin and CXR with possible PNA with
cardiology evaluation. Pt report no stools for 1 week. Obstruction series completed with distention of colon with large amount of stool with rectal distention with concern for impaction and consider decompression rectum and reassess. Pt
also noted with elevated LFT's with bili 0.9, AST 60, alk 77 alk phos 205. US completed with
No evidence of cholelithiasis, gallbladder wall thickening or biliary tract dilatation. Left lobe of liver, pancreas and abdominal aorta significantly obscured, most likely by overlying bowel gas. In review with patient and son, patient has had
recent admission to [facility] within last month with similar symptom and fecal impaction. He had multiple enemas but did not completely clear.
-fecal impaction with large rectal stool burden and distention of colon
-recent admission to [facility] in last month with similar impaction
-hx colon ca age 42 with resection/temp ostomy/reversal and need to dilations post surgeru
-recent melena
-increased LFT's
-anemia with iron deficiency
-CXR with concern for PNA
-elevated troponin
-wt loss
other med problems:
-afib on Xarelto
-NIDDM
-ASCVD with prior CABG
PLAN:
etiology of symptoms with concern for large fecal impaction with colonic distention -- recurrent over last month with now 3rd admission
s/p attempted disimpaction with Dr. Solis with stool higher up
s/p enema x 2 overnight with passage of multiple stool and feeling better
abd X ray pending
hbg with some further drop to 7.4 with iron deficiency
will add IV iron
will review imaging with Dr. Cassidy-- reviewed concern with patient with 3 admission for fecal impaction and anemia -- with hx colon CA ? recurrence vs stricture- he is unsure if would want colonoscopy but also reviewed for flex sig
he will consider options and review further with Dr. Cassidy if able today today vs Saturday with multiple other medical issues
bowel regiment with colace BID, senna 2 tabs at -- will need to increase pending plan for scope
pt on Xarelto but no doses since admission 02/03
NPO ok for sip liquids
IVF
cont abx with concen for PNA
cont PPI
requested records from [place] and [facility]
cont work up for other issue with elevated trop, pNA per medical team
updated son dangelo- [phone] 02/04
-per review with son pt has been declining several intervention and recent ER evaluations
Subjective
Subjective
Date of Service: February 05, 2025
+ multiple loose brown stools overnight and feeling better, on sips clears
Objective
Data Reviewed
Laboratory Data:
Laboratory Results
02/05/25 05:27
02/05/25 05:27
Laboratory Results
PT 20.4 Sec (11.4-14.6) H 02/03/25 17:49
INR 1.69 02/03/25 17:49
APTT 37.1 Sec (23.4-35.0) H 02/03/25 17:49
Magnesium 1.9 mg/dl (1.6-2.3) 02/05/25 05:27
Total Bilirubin 0.9 mg/dl (0.2-1.3) 02/03/25 17:49
AST 60 U/L (17-59) H 02/03/25 17:49
ALT 77 U/L (0-50) H 02/03/25 17:49
Alkaline Phosphatase 205 U/L (38-126) H 02/03/25 17:49
Vital Signs and I&O:
Vital Signs
Temp Pulse Resp BP Pulse Ox
98.8 F 85 18 117/58 95
02/05/25 07:35 02/05/25 07:35 02/05/25 07:35 02/05/25 07:35 02/05/25 07:35
I&O
02/04/25 02/05/25 02/06/25
06:59 06:59 06:59
Intake Total 240 / 240 720 / 720
Output Total 200 / 200 950 / 950
Balance 40 / 40 -230 / -230
Physical Exam
Physical Exam
HEENT: Anicteric and Moist mucous membranes
Cardiology: Normal Sinus Rhythm
Pulmonary: Clear
GI: Soft, Non Distended and Non Tender
Extremities: No Edema
[2025-02-05] MEDS: NSS (PRESERVATIVE FREE) 10 ML IV ×2 (09:27→20:51)
[2025-02-05] MEDS: PROTONIX IV 40 MG IV ×2 (09:27→20:51)
[2025-02-05] MEDS: ANESTHETIC LOZENGE 1 LOZENGE PO (09:30)
[2025-02-05 09:49] LABS: Hematocrit 25.6 % (39.0-52.0); Hemoglobin 8.1 g/dL (13.0-18.0)
[2025-02-05 10:26] LABS: Troponin I 1.040 ng/ml
[2025-02-05] MEDS: LOW STRENGTH ASPIRIN 81 MG PO (12:38)
[2025-02-05 13:29] LABS: Glucose - Point of Care 236 mg/dl (70-99)
[2025-02-05] MEDS: NOVOLOG FLEXPEN-LOW RESISTANCE 2 UNITS SC (13:30)
[2025-02-05] MEDS: FERRLECIT 110 MG IV (14:55)
[2025-02-05] MEDS: MIRALAX 17 GRAMS PO (14:55)
--- NOTE | 2025-02-05 16:17 | CM ---
Patient seen at bedside on , physicians also present. Patient son stated that patient some days was good and some days not. Patient diet is very much full of junk food and son has been in an accident several years ago and is unable to assist
more than shoping and going out for meals. Patient has other children that he is no longer in contact with. Per son patient will not go to SNF and wants to go home with [facility] for supports. Patient would like to resume with [facility].
CM will continue to follow for discharge planning needs.
Plan; home with [facility] when medically appropriate, will need referral
[2025-02-05 17:02] LABS: Glucose - Point of Care 183 mg/dl (70-99)
[2025-02-05] MEDS: NOVOLOG FLEXPEN-LOW RESISTANCE 1 UNITS SC (17:36)
[2025-02-05] MEDS: ROCEPHIN 1000 MG IV (20:53)
[2025-02-05] MEDS: STERILE WATER FOR INJECTION 10 ML IV (20:54)
[2025-02-05] MEDS: SENOKOT 17.2 MG PO (21:04)
[2025-02-05 21:17] LABS: Glucose - Point of Care 154 mg/dl (70-99)
[2025-02-06 03:01] VITALS: BP 129/79
[2025-02-06 06:00] VITALS: BMI 20.6
[2025-02-06 07:00] VITALS: BP 141/80
--- NOTE | 2025-02-06 07:16 | W.PN.HOSP.TC ---
Addendum entered and electronically signed by Tiffany Aguirre MD 02/06/25 15:35:
I saw and evaluated the patient independently. I reviewed the resident�s note and agree with findings and plan as documented by Dr. Gordon.
GENERAL: well developed, well nourished, male in some distress--c/o abdominal pain and no BM x 7 days
HEENT: NC/AT
HEART: irreg irreg, JEMAL
LUNGS : clear to auscultation bilaterally
ABDOM: soft, nontender, nondistended, positive BS
EXT: no cyanosis, clubbing, or edema
NEUROLOGIC: grossly intact
abdominal discomfort--due to dilated colon with fecal impaction--apprec GI--OBS series with dilated colon and fecal impaction---apprec GI consult--enemas given with good results
Type 2 NSTEMI--tropinins elevated with some chest pain with exertion (takes SLG NTG)--apprec cards--medical management for now--ECHO with EF 55%--Initial troponin 0.368, peaked at 2.4 with decrease to 1.0
Abnormal Chest X-ray showing left perihilar/medial lower lobe opacity--no symptoms c/w pna--can stop rocephin and doxy
Scratch on Face--from fall--follow
Paroxysmal Atrial Fibrillation--cont metoprolol--hold xarelto for now
Acute on Chronic Anemia with a history of GI Bleed--Hemoglobin today: 7.8 On Repeat H&H, it hawa to: 8.3, possibly representing a dilution--Follow H&H and will transfuse with goal to keep hemoglobin >8--cont PPI--holding Xarelto
Essential Hypertension--BP within normal limits today--Continue metoprolol
Type II Diabetes Mellitus--A1c: 7.0 (02/03/2025)--Continue insulin therapy
DVT proph
code status --DNR
home with VN
Original Note:
Today's Communication/Plan
-
Discharge today
Assessment / Plan
Assessment / Plan
Assessment:
This is an 89 y/o male with pmhx of atrial fibrillation and essential hypertension who was brought to the ED via 911 after his physical therapist found him very weak found to have elevated troponin and fecal impaction
Plan:
Cognitive Impairment
-Patient appears confused at baseline with difficulty remembering things. He is, according to his son, still in charge of managing his own medications as he gets upset when others dictate what he can and can't do. This likely contributed to his
hospitalization, as he has previously reported he takes MiraLax and other times states he does not remember take it.
-At this time he has not been formally diagnosed with Dementia.
-Patient should not drive until he is assessed by his primary care physician.
Constipation with Resolved Fecal Impaction
-Fecal Impaction noted on Abdominal X-ray 02/04
-Patient status post enema x2
-Repeat Abdominal X-ray 02/05 showed fecal matter still present within the right colon, but no signs of impaction
-Will continue to monitor for symptoms
-Continue Bowel regimen, which will need to be continued in outpatient setting as patient has had other hospitalizations for fecal impaction
Abnormal Chest X-ray
-Patient with Chest X-ray showing left perihilar/medial lower lobe opacity, not currently complaining of shortness of breath. Tachycardia could be explained by abnormal troponin. Unclear if he has pneumonia at this time
-Patient remains free of shortness of breath, cough, or signs of pneumonia.
-Repeat X-ray did not show any signs of pneumonia
-Stopped Antibiotics on discharge
Scratch on Face
-Unknown origin, possibly from fall
-Will monitor for any changes
Right Bundle Branch Block
-Present on EKG from 02/03 and 02/04. No prior EKG seen.
-Patient follows with outpatient cardiology
Abnormal Troponin
-Extremely high suspicion for NSTEMI with abnormal symptoms (upper abdominal cramping vs chest pain)
-EKG on arrival showed inverted T waves in anterior leads and sinus tachycardia
-Initial troponin 0.368, peaked at 2.440 on 02/04/2025, now downtrending at 1.040
-Continue to trend troponin
-Echo from 02/04/2025 showed normal EF.
Paroxysmal Atrial Fibrillation
-Patient now in afib, not present upon arrival
-Continue metoprolol for rate control
-HOLD Xarelto due to anemia
Acute on Chronic Anemia with a history of GI Bleed
-Hemoglobin today: 8.4. No indication for transfusion at this time.
-Stool in the ED was heme negative
-Follow H&H and will transfuse with goal to keep hemoglobin >8
-Continue pantoprazole 40mg daily
-Patient is now medically stable and ready for discharge
Essential Hypertension
-BP within normal limits
-Continue metoprolol
Type II Diabetes Mellitus
-A1c: 7.0 (02/03/2025)
-Continue insulin therapy
Anticipated Discharge: Today
Subjective/Interval History
-
Date of Service: February 06, 2025
Patient was awake when I was arrived. He denied any abdominal pain, and denied ever having abdominal pain. He told me he has not had a bowel movement in 7 days. I reminded him of the enemas he had while in the hospital, and he states he remembers
doing those but that they, 'did not work.' He also expressed confusion about the medications he was taking and told me a nurse told me he was taking Azithromycin. I spent time reviewing his medications and hospital course with him thus far. After
this review, he stated, 'Well that sounds about right.' He had no further questions or complaints.
Objective Data
-
Labs:
Laboratory Results
02/06/25
06:00
WBC Pending
Hgb Pending
Hct Pending
Plt Count Pending
Sodium Pending
Potassium Pending
Chloride Pending
Carbon Dioxide Pending
BUN Pending
Creatinine Pending
Glucose Pending
Calcium Pending
Vital Signs:
Vital Signs
Temp Pulse Resp BP Pulse Ox
98.4 F 77 19 129/79 98
02/06/25 03:01 02/06/25 03:01 02/06/25 03:01 02/06/25 03:01 02/06/25 03:01
I&O
02/05/25 02/06/25 02/07/25
06:59 06:59 06:59
Intake Total 720 / 720 720 / 720
Output Total 950 / 950 1200 / 1200
Balance -230 / -230 -480 / -480
Review of Systems
-
Unable to obtain full review of systems at this time due to: Dementia
History Source: Patient
Respiratory: Denies Cough, Hemoptysis, Trouble Breathing or Wheezing
Cardiac: Denies Chest Pain, Diaphoresis, Palpitations or Syncope
Abdomen/GI: Reports Constipated; Denies Abdominal Pain, Nausea, Vomiting or Diarrhea
Neuro: Denies Dizzy or Headache
Physical Exam
-
General: Well Developed, Well Nourished, No Apparent Distress and Comfortable
HEENT: Normocephalic, Atraumatic and Other (Right sided nasolabial fold irritation)
Respiratory: Clear to Auscultation
Cardiac: S1/S2 and Irregular Rhythm
GI: Soft, Nontender and Normal Bowel Sounds
Skin: Warm and Dry
Neuro: Awake and Alert
Psych: Calm, Confused and Apparent Dementia
[2025-02-06 07:22] LABS: Hematocrit 26.9 % (39.0-52.0); Hemoglobin 8.4 g/dL (13.0-18.0); Mean Corp Hgb Conc. 31.2 g/dL (33.0-37.0); Mean Corpuscular Volume 86.8 fL (80.0-94.0); Platelet Count 222 10^3/uL (130-400); Red Cell Dist. Width 17.2 % (11.5-14.5)
[2025-02-06 07:25] LABS: Blood Urea Nitrogen 36 mg/dl (9-20); Calcium 9.6 mg/dl (8.4-10.2); Carbon Dioxide 25 mmol/L (22-30); Chloride 106 mmol/L (98-107); Estimated Creatinine Clearance 47 ml/min; Glucose 145 mg/dl (70-99); Potassium 4.1 mmol/L (3.5-5.1); Sodium 139 mmol/L (135-145); eGFR > 60.00
[2025-02-06 08:23] LABS: Glucose - Point of Care 159 mg/dl (70-99)
[2025-02-06] MEDS: NOVOLOG FLEXPEN-LOW RESISTANCE 1 UNITS SC (09:04)
[2025-02-06] MEDS: LOW STRENGTH ASPIRIN 81 MG PO (09:05)
[2025-02-06] MEDS: IMDUR (EXTENDED RELEASE) 30 MG PO (09:05)
[2025-02-06] MEDS: VIBRAMYCIN 100 MG PO (09:05)
[2025-02-06] MEDS: COLACE 100 MG PO (09:05)
[2025-02-06] MEDS: MIRALAX 17 GRAMS PO (09:05)
[2025-02-06] MEDS: NSS (PRESERVATIVE FREE) 10 ML IV (09:06)
[2025-02-06] MEDS: TOPROL XL 25 MG PO (09:06)
[2025-02-06] MEDS: FLUSH (NSS) 2 FLUSH IV (09:06)
[2025-02-06] MEDS: PROTONIX IV 40 MG IV (09:06)
[2025-02-06 10:16] VITALS: BP 138/73; BP 142/80; BP 152/88; PULSE 111; PULSE 84; PULSE 89
[2025-02-06 11:00] VITALS: BP 146/69
[2025-02-06 12:49] LABS: Glucose - Point of Care 309 mg/dl (70-99)
[2025-02-06] MEDS: NOVOLOG FLEXPEN-LOW RESISTANCE 4 UNITS SC (13:11)
[2025-02-06] MEDS: FERRLECIT 110 MG IV (13:21)
[2025-02-06] MEDS: NOVOLOG FLEXPEN 2 UNITS SC (13:21)
--- NOTE | 2025-02-06 14:02 | CM ---
Addendum entered by Jayshree Solitario 02/06/25 16:16:
please fax clinical information to [phone]
Addendum entered by Jayshree Solitario 02/06/25 14:16:
Patient son aware of discharge and will be here in an hour. referral sent to [facility].
Original Note:
Patient seen at bedside in [facility]. Patient accepted for follow up with [facility] care. Patient son to pick patient up. CM answered and addressed all questions and IMM signed form placed on chart. Patient with some confusion and asking same questions
to CM and physician. CM will send referral to [facility] for assessment to see if any program support available. CM will continue to follow for discharge planning needs.'
Plan; home with [facility] care and family; referral to [facility]
--- NOTE | 2025-02-06 14:18 | PTCARENOTE ---
Lunch time blood sugar was 309. Pt asymptomatic. Made Dr. Gordon and Dr. Aguirre aware of blood sugar. Dr. Gordon ordered an additional 2 units of Novolog for a total of 6 units of Novolog at lunch. Updated pt on plan.
--- NOTE | 2025-02-06 14:18 | W.DCSUMMARY ---
Addendum entered and electronically signed by Tiffany Aguirre MD 02/06/25 15:39:
Read, reviewed, and agree. See same day progress note for additional details. Time spent coordinating care, DC planning, review of DC plan of care with resident, transition of care, review of records in EMR, med rec, consults, notes, d/w
consultants, nursing, family, and CM = 37 minutes
At the very least, patient has cognitive impairment; but we have concerns of dementia. Patient answers questions with inappropriate answers. Fixates on incorrect information and refuses to accept correction. We have concerns that he should not be
driving. We also have concerns regarding him taking his own medications.
Original Note:
Discharge Summary
Discharge Data
Date of Admission: 02/03/25
Date of Discharge: 02/06/25
-
Pending Results: No
Hospital Course
This is an 89 y/o male with pmhx of atrial fibrillation and essential hypertension who was brought to the ED via 911 after his physical therapist found him very weak on 02/03/2025. He complained of dizziness, nausea and chest discomfort occurring
with activity and improved at rest. His pmhx is significant for a hospitalization in 09/[address] [facility] for a GI bleed
In the ED, Chest X-ray revealed left perihilar lower lobe opacity likely pneumonia. CT head showed small subcutaneous hyper density within the right sub occipital/posterior cervical soft tissues which may represent a hematoma. His troponin were
elevated at 0.368, and he was anemic with a hemoglobin of 8.6. His EKG showed a right bundle branch block with atrial fibrillation. He was started on ceftriaxone and doxycycline and admitted to the hospital.
On 02/04/2025 his troponin peaked at 2.440. He complained of abdominal pain, and an abdominal X-rayed showed fecal impaction. Manual disimpaction was attempted but was unsuccessful. He received two enemas of Milk of Molasses which relieved his
symptoms. Repeat chest/abdominal X-ray on 02/05/2025 showed stool in the right colon but no signs of impaction. It also did not show any signs of acute pneumonia. He remained anemic during the hospitalization at baseline, but never required
transfusion.
He was found to be medically stable and was discharged to home with home health care on 02/06/2025. He was instructed to follow up with his PCP in less than one week, and it was stressed to him the importance he continue to take his laxaties and
stool softeners at home.
Discharge Plan
-
Patient Disposition: Home with Home Care
Discharge Diagnosis/Procedures: Right Bundle Branch Block, Constipation with Fecal Impaction, Abnormal Chest X-ray, Abnormal Troponin, Paroxysmal Atrial Fibrillation, Acute on Chronic Anemia with a history of GI Bleed, Essential Hypertension, Type
II Diabetes Mellitus
Condition: Fair
Diet: No restrictions
Activity: As tolerated
Driving Restrictions: Not until seen by your Dr
Referrals:
Floyd Bermeo DO [Family Provider, Family Practice] - in less than 1 week
Prescriptions:
New
sennosides [Romy-van] 8.6 mg Tablet
17.2 mg PO HS Qty: 30 0RF
Continued
polyethylene glycol 3350 [Miralax] 17 gram Powder In Packet
17 g PO DAILYPRN PRN (Reason: constipation)
clotrimazole-betamethasone 1-0.05 % Cream
1 applic TOPICAL HS
nitroglycerin 0.4 mg Tablet, Sublingual
0.4 mg SUBLINGUAL [id number] PRN (Reason: chest pain)
docusate sodium [Colace] 100 mg Capsule
100 mg PO DAILYPRN PRN (Reason: constipation)
atorvastatin 20 mg Tablet
20 mg PO QPM Qty: 0 0RF
Rx Instructions:
02/03/2025, take w/ 10 mg for a total of 30 mg.
atorvastatin 10 mg Tablet
10 mg PO QPM Qty: 0 0RF
Rx Instructions:
02/03/2025, take w/ 20 mg for a total of 30 mg.
isosorbide mononitrate 30 mg Tablet Extended Release 24 Hr
30 mg PO DAILY Qty: 0 0RF
glimepiride 2 mg Tablet
2 mg PO NOON Qty: 0 0RF
hydrocortisone 2.5 % Cream With Perineal Applicator
1 applic IA HS Qty: 0 0RF
pantoprazole 40 mg Tablet,Delayed Release (Dr/Ec)
40 mg PO DAILY Qty: 0 0RF
cyanocobalamin (vitamin B-12) 1,000 mcg/mL solution
1,000 mcg SC QMONTH Qty: 0 0RF
lisinopril 10 mg Tablet
10 mg PO NOON Qty: 0 0RF
metoprolol succinate [Toprol XL] 25 mg Tablet Extended Release 24 Hr
25 mg PO DAILY Qty: 0 0RF
lorazepam 1 mg Tablet
1 mg PO BID Qty: 0 0RF
metformin 750 mg Tablet Extended Release 24 Hr
750 mg PO NOON Qty: 0 0RF
Xarelto 15 mg Tablet
15 mg PO QPM Qty: 0 0RF
Fish Oil
1 cap PO DAILY Qty: 0 0RF
Discharge Orders:
Discharge Patient (As Directed); Ordered 02/06/25
Ordered By: Quyen Gordon
Discharge Date and Time
Print Language: DOMINICAN
[2025-02-06 15:00] VITALS: BP 156/72
[2025-02-06 16:26] LABS: Glucose - Point of Care 165 mg/dl (70-99)
== END 2025-02-06 16:42 | disposition home health service (06) | DRG 280 ==
LOC: 4 EAST ACU 22:13
PROVIDERS: Nurse Practitioner Adult Health; ADMITTING PHYSICIAN Hospitalist; ATTENDING PHYSICIAN Internal Medicine; CONSULT PHYSICIAN Specialist; EMERGENCY PHYSICIAN Emergency Medicine; FAMILY PHYSICIAN Family Medicine; OTHER PHYSICIAN Internal Medicine Cardiovascular Disease
DX: I21.4 Non-ST elevation (NSTEMI) myocardial infarction (principal); J18.8 Other pneumonia, unspecified organism; K59.39 Other megacolon; I25.10 Atherosclerotic heart disease of native coronary artery without angina pectoris; I45.10 Unspecified right bundle-branch block; I10 Essential (primary) hypertension; K56.41 Fecal impaction; I48.0 Paroxysmal atrial fibrillation; K21.9 Gastro-esophageal reflux disease without esophagitis; D50.9 Iron deficiency anemia, unspecified; R63.4 Abnormal weight loss; I08.3 Combined rheumatic disorders of mitral, aortic and tricuspid valves; E78.5 Hyperlipidemia, unspecified; R41.89 Other symptoms and signs involving cognitive functions and awareness; R41.0 Disorientation, unspecified; E78.00 Pure hypercholesterolemia, unspecified; S00.81XA Abrasion of other part of head, initial encounter; E11.9 Type 2 diabetes mellitus without complications; W19.XXXA Unspecified fall, initial encounter; Y93.9 Activity, unspecified; Y92.9 Unspecified place or not applicable; Z66 Do not resuscitate; Z60.2 Problems related to living alone; Z79.01 Long term (current) use of anticoagulants; Z79.82 Long term (current) use of aspirin; Z95.1 Presence of aortocoronary bypass graft; Z79.84 Long term (current) use of oral hypoglycemic drugs; Z85.038 Personal history of other malignant neoplasm of large intestine; Z68.20 Body mass index [BMI] 20.0-20.9, adult
CPT/HCPCS: 70450; 71046; 74018; 74022; 76700; 80048; 80053; 80061; 81003; 81015; 82728; 82962; 83036; 83540; 83550; 83735; 84443; 84484; 85014; 85018; 85025; 85027; 85610; 85730; 86850; 86900; 86901; 87040; 87086; 93005; 93306; 96365; 96375; 97116; 97163; 97166; 99285; J2916